=== PATIENT | male | born 1975 | race Caucasian/White ===

== ENCOUNTER 2019-08-09 08:26 | Outpatient (CLI) | payer OTHER, SELFPAY ==
[2019-08-10 02:02] LABS: COVID-19 RT-PCR UVMMC Result Negative (Negative)
== END 2019-08-09 08:46 ==
PROVIDERS: PCP Nurse Practitioner Adult Health; Visit Provider Family Medicine
DX: Z20.828 Contact with and (suspected) exposure to other viral communicable diseases (principal)
CPT/HCPCS: U0003